=== PATIENT | male | born 1990 | race Two or more races ===

== ENCOUNTER 2024-02-27 03:09 | Emergency (ER) | payer MEDICAID, OTHER ==
[~2024-02-27] VITALS: Ht 180.3 cm; Wt 100.0 kg
[2024-02-27 03:30] VITALS: PULSE 82; RESP 16; O2SAT 98
[2024-02-27] MEDS: SODIUM CHLORIDE 0.9% 1,000 ML IV ONE ×2 (04:51→05:32)
[2024-02-27 07:30] VITALS: PULSE 82; RESP 16; O2SAT 98
[2024-02-27 09:35] VITALS: BP 114/76; PULSE 80; RESP 14; TEMP 97.4; O2SAT 97
== END 2024-02-27 09:52 | disposition home or self-care (01) ==
LOC: ER 03:09
DX: F10.129 Alcohol abuse with intoxication, unspecified (principal); Y90.8 Blood alcohol level of 240 mg/100 ml or more
CPT/HCPCS: 96360; 96361; 99285; J7030